=== PATIENT | male | born 1935 | race Caucasian/White ===

== ENCOUNTER 2017-10-16 14:13 | Emergency (ER) | payer MEDICARE ==
[2017-10-16 14:29] VITALS: RESP 18
[2017-10-16 14:30] VITALS: BMI 29.2
[2017-10-16] MEDS ORDERED: Dexamethasone 4 mg/1 ml IM STA (15:08)
[2017-10-16] MEDS ORDERED: Dexamethasone 4 mg/1 ml ONE (15:13)
--- NOTE | 2017-10-16 15:47 | C.PDOC ---
History Of Present Illness 82 y/o male presents to the ER complaining of left lower back pain radiating down the left leg since yesterday. No associated fall or trauma. Patient reports hx of herniated discs, but notes the pain worsened yesterday and now radiates all the way to his left heel. Pain worsens with movement, especially ambulation. Otherwise patient denies any dysuria, incontinence, fever, abdominal pain, extremity weakness, or changes in sensation. Denies taking any medication for pain prior to arrival. Requesting injection for pain in the ER. Time Seen by Provider: 10/16/17 14:41 Chief Complaint (Nursing): Lower Extremity Problem/Injury History Per: Patient History/Exam Limitations: no limitations Onset/Duration Of Symptoms: Days (x2) Current Symptoms Are (Timing): Still Present Past Medical History Reviewed: Historical Data, Nursing Documentation, Vital Signs Vital Signs: Last Vital Signs Temp 97.7 F 10/16/17 16:05 Pulse 60 10/16/17 16:05 Resp 18 10/16/17 16:05 BP 156/64 H 10/16/17 16:05 Pulse Ox 100 10/16/17 16:38 - Medical History PMH: HTN Denies: Chronic Kidney Disease Family History: States: Unknown Family Hx - Social History Hx Tobacco Use: No Hx Alcohol Use: Yes (Socially onec in 3 months) Hx Substance Use: No - Immunization History Hx Tetanus Toxoid Vaccination: No Hx Influenza Vaccination: Yes Hx Pneumococcal Vaccination: No Review Of Systems Except As Marked, All Systems Reviewed And Found Negative. Constitutional: Negative for: Fever, Chills Gastrointestinal: Negative for: Abdominal Pain Genitourinary: Positive for: Frequency. Negative for: Dysuria, Incontinence Musculoskeletal: Positive for: Back Pain Skin: Negative for: Rash Neurological: Negative for: Weakness, Numbness Physical Exam - Physical Exam Appears: Non-toxic, No Acute Distress Skin: Normal Color, Warm, Dry Head: Atraumatic, Normacephalic Eye(s): bilateral: Normal Inspection, PERRL, EOMI Nose: Normal Oral Mucosa: Moist Neck: Normal ROM, Supple Chest: Symmetrical Respiratory: No Accessory Muscle Use, Other (speaking in full sentences) Back: No Vertebral Tenderness, Paraspinal Tenderness (to left paralumbar region) , No Straight Leg Raising Extremity: Bilateral: Atraumatic, Normal Color And Temperature, Normal ROM Pulses: Left Dorsalis Pedis: Normal, Right Dorsalis Pedis: Normal Neurological/Psych: Oriented x3, Normal Speech, Normal Cranial Nerves, Normal Motor, Normal Sensation, Other (No focal deficits) Gait: Steady ED Course And Treatment O2 Sat by Pulse Oximetry: 100 (RA) Pulse Ox Interpretation: Normal Reevaluation Time: 16:22 Reassessment Condition: Improved Medical Decision Making Medical Decision Making: Initial Impression: Acute on chronic back pain Time: 15:08 Initial Plan: --Toradol 15 mg IM --Decadron 4 mg IM --Reevaluation after meds given Progress/Updates: 15:30 On further discussion, patient now reports he's having urinary frequency at night over the past several months. Denies dysuria. Added on UA and urine culture. 16:19 Labs reviewed, urine is negative. On reevaluation patient reports improvement in pain, and is ambulatory with steady gait. Patient informed of lab results, and counseled regarding diagnosis. Stable for d /c home. Advised patient to follow up with PMD in 1-2 days for further evaluation. Disposition Counseled Patient/Family Regarding: Studies Performed, Diagnosis, Need For Followup, Rx Given - Disposition Referrals: [facility] [Outside] Disposition: HOME/ ROUTINE Disposition Time: 16:22 Condition: STABLE Additional Instructions: Follow up with the medical doctor within 1-2 days. Return if worsened; Prescriptions: Acetaminophen [Tylenol] 325 mg PO Q6 PRN #30 tab PRN Reason: Pain, Mild (1-3) Cyclobenzaprine [Flexeril] 5 mg PO TID #21 tab predniSONE [Prednisone] 10 mg PO BID #10 tab Instructions: Low Back Pain (DC), Benign Prostatic Hyperplasia (Enlarged Prostate) (DC), Knee Pain Forms: [employer] (Cypriot) Print Language: LUXEMBOURGISH - POA Present On Arrival: None - Clinical Impression Clinical Impression: Back pain - PA / MANAGER COMPETITIVE INTELLIGENCE / Resident Statement MD/DO has reviewed & agrees with the documentation as recorded. - Scribe Statement The provider has reviewed the documentation as recorded by the Scribe (Caroline Valadez) All medical record entries made by the Scribe were at my direction and personally dictated by me. I have reviewed the chart and agree that the record accurately reflects my personal performance of the history, physical exam, medical decision making, and the department course for this patient. I have also personally directed, reviewed, and agree with the discharge instructions and disposition.
[2017-10-16 16:04] LABS: URINE BILIRUBIN NEGATIVE (NEGATIVE); URINE BLOOD NEGATIVE (NEGATIVE); URINE CLARITY Clear (Clear); URINE COLOR Yellow (YELLOW); URINE GLUCOSE (UA) NORMAL (Normal); URINE LEUKOCYTE ESTERASE NEG Leu/uL (Negative); URINE PROTEIN NEGATIVE (NEGATIVE); URINE UROBILINOGEN NORMAL mg/dL (0.2-1.0)
[2017-10-16 16:06] VITALS: BP 156/64; PULSE 60; TEMP 97.7
[2017-10-16 16:38] VITALS: O2SAT 100
== END 2017-10-16 16:35 | disposition home or self-care (01) ==
LOC: C.ER 14:13
DX: M54.9 Dorsalgia, unspecified (principal); I10 Essential (primary) hypertension
CPT/HCPCS: 81001; 87086; 96372; 99284; J1100; J1885

== ENCOUNTER 2018-04-10 17:47 | Emergency (ER) | payer MEDICARE ==
[2018-04-10 17:47] VITALS: BMI 29.2
--- NOTE | 2018-04-10 18:20 | C.PDOC ---
History Of Present Illness 82 year old male presents to the ED complaining of burning and pain on urination status post Quinn catheter removal. Reports he had prostate surgery two weeks ago and was sent home with Quinn catheter that was removed on 04/05 and since then he has been having the symptoms. Notes he is able to void and pass normal stream. States he is now having abdominal discomfort that radiates to his back and legs. Denies any fever or chills. Time Seen by Provider: 04/10/18 18:01 Chief Complaint (Nursing): Male Genitourinary History Per: Patient History/Exam Limitations: no limitations Onset/Duration Of Symptoms: Days Current Symptoms Are (Timing): Still Present Quality Of Discomfort: Other (discomfort) Associated Symptoms: Back Pain, Urinary Symptoms. denies: Fever, Chills, Nausea, Vomiting, Diarrhea, Chest Pain Past Medical History Reviewed: Historical Data, Nursing Documentation, Vital Signs Vital Signs: Last Vital Signs Temp 98 F 04/10/18 17:52 Pulse 116 H 04/10/18 17:52 Resp 22 04/10/18 17:52 BP 129/76 04/10/18 17:52 Pulse Ox 100 04/10/18 17:52 - Medical History PMH: HTN Denies: Chronic Kidney Disease Other Surgeries: Hx of surgeries - prostate, cataracts Family History: States: No Known Family Hx - Social History Hx Tobacco Use: No Hx Alcohol Use: Yes (Socially onec in 3 months) Hx Substance Use: No - Immunization History Hx Tetanus Toxoid Vaccination: No Hx Influenza Vaccination: Yes Hx Pneumococcal Vaccination: No Review Of Systems Constitutional: Negative for: Fever, Chills Cardiovascular: Negative for: Chest Pain Respiratory: Negative for: Shortness of Breath Gastrointestinal: Positive for: Abdominal Pain. Negative for: Nausea, Vomiting, Diarrhea, Constipation Genitourinary: Positive for: Dysuria. Negative for: Incontinence, Hematuria Musculoskeletal: Positive for: Back Pain, Leg Pain Neurological: Negative for: Weakness, Numbness Physical Exam - Physical Exam Appears: Non-toxic, No Acute Distress Skin: Warm, Dry, No Rash Head: Normacephalic Eye(s): bilateral: Normal Inspection Nose: Normal Oral Mucosa: Moist Neck: Supple Chest: Symmetrical Cardiovascular: Rhythm Regular Respiratory: Normal Breath Sounds, No Rales, No Rhonchi, No Wheezing Gastrointestinal/Abdominal: No Tenderness (no localized abdominal tenderness ), Distention (mild distention to lower abdomen ), No Guarding, No Rebound Male Genital: Normal Inspection Extremity: Bilateral: Atraumatic, Normal Color And Temperature, Normal ROM Neurological/Psych: Oriented x3, Normal Speech Gait: Steady ED Course And Treatment - Laboratory Results Result Diagrams: 18 18:27 1218 18:27 Lab Interpretation: Abnormal (WBC 12.8, urine WBC 78 wit h 2+ leukocyte esterase) O2 Sat by Pulse Oximetry: 100 (RA) Pulse Ox Interpretation: Normal Progress Note: Patient received IV Rocephin in ED. Reevaluation Time: 21:30 Reassessment Condition: Improved Medical Decision Making Medical Decision Making: Plan - Bloodwork - UA - Urine culture Disposition Counseled Patient/Family Regarding: Studies Performed, Diagnosis, Need For Followup, Rx Given - Disposition Disposition: HOME/ ROUTINE Disposition Time: 21:35 Condition: STABLE Prescriptions: Ciprofloxacin [Cipro] 1 tab PO BID #14 tab Instructions: Urinary Tract Infections in Adults Forms: [facility] (Pashto) Print Language: HUNGARIAN - Clinical Impression Clinical Impression: UTI (urinary tract infection) - Scribe Statement The provider has reviewed the documentation as recorded by the Scribe Alison Hernandez All medical record entries made by the Scribe were at my direction and personally dictated by me. I have reviewed the chart and agree that the record accurately reflects my personal performance of the history, physical exam, medical decision making, and the department course for this patient. I have also personally directed, reviewed, and agree with the discharge instructions and disposition.
[2018-04-10 18:33] LABS: BASO # 0.1 K/uL (0.0-0.2); BASO % 0.8 % (0.0-2.0); EOS # 0.1 K/uL (0.0-0.7); EOS % 0.9 % (0.0-4.0); HEMOGLOBIN 13.5 g/dL (12.0-18.0); LYMPH # 1.9 K/uL (1.0-4.3); LYMPH % 14.5 % (20.0-40.0); MEAN CELL VOLUME 90.7 fL (80.0-94.0); MEAN CORPUSCULAR HEMOGLOBIN 30.2 pg (27.0-31.0); MEAN CORPUSCULAR HGB CONC 33.3 g/dL (33.0-37.0); MEAN PLATELET VOLUME 7.3 fL (7.2-11.7); MONO # 1.2 K/uL (0.0-0.8); MONO % 9.1 % (0.0-10.0); NEUT # 9.5 K/uL (1.8-7.0); NEUT % 74.7 % (50.0-75.0); RBC 4.46 Mil/uL (4.40-5.90); RED CELL DISTRIBUTION WIDTH 13.5 % (11.5-14.5); WHITE BLOOD COUNT 12.8 K/uL (4.8-10.8)
[2018-04-10 18:48] LABS: ALB/GLOB RATIO 1.4 (1.0-2.1); ALBUMIN 4.2 g/dL (3.5-5.0); ALT/SGPT 32 U/L (21-72); AST/SGOT 25 U/L (17-59); BLOOD UREA NITROGEN 17 mg/dL (9-20); CALCIUM 8.5 mg/dl (8.6-10.4); GFR NON-AFRICAN AMERICAN > 60
[2018-04-10 18:50] LABS: URINE BILIRUBIN NEGATIVE (NEGATIVE); URINE BLOOD 3+ (NEGATIVE); URINE CLARITY Clear (Clear); URINE COLOR Yellow (YELLOW); URINE GLUCOSE (UA) NORMAL (Normal); URINE LEUKOCYTE ESTERASE 2+ Leu/uL (Negative); URINE PROTEIN 2+ mg/dL (NEGATIVE); URINE UROBILINOGEN NORMAL mg/dL (0.2-1.0)
[2018-04-10] MEDS ORDERED: cefTRIAXone IV 1 gm in Dextros 50 ML IVPB ONE (18:59)
[2018-04-10] MEDS ORDERED: cefTRIAXone 1 gm 1 GM/100 ML BAG IVPB ONE (19:20)
[2018-04-10 21:46] VITALS: BP 136/74; PULSE 68; RESP 18; TEMP 98.1; O2SAT 98
== END 2018-04-10 21:46 | disposition home or self-care (01) ==
LOC: C.ER 17:47
DX: N39.0 Urinary tract infection, site not specified (principal); I10 Essential (primary) hypertension
CPT/HCPCS: 80053; 81001; 85025; 87086; 96374; 99285; J0696

== ENCOUNTER 2018-04-28 08:05 | Emergency (ER) | payer MEDICARE ==
[2018-04-28 08:06] VITALS: BMI 29.2
--- NOTE | 2018-04-28 08:36 | C.PDOC ---
History Of Present Illness 82 y/o male with a PMHx of BPH presents to the ED for evaluation of dysuria and hematuria since 1 month ago. Patient reports having an ultrasound of his prostate 1 month ago, after which he had a catheter placed for 1 week and then r emoved. He states symptoms have now worsened including testicular pain and swelling. Patient notes he was seen by his doctor and prescribed courses of Levaquin and Bactrim for a UTI, which he started yesterday. He reports the medication made him feel anxious and "desperate", associated with difficulty sleeping last night. Otherwise he denies any dizziness, nausea, vomiting, diarrhea, fevers, chills, or night sweats. Patient also reports low back pain, denies history of chronic pain. Time Seen by Provider: 04/28/18 08:30 Chief Complaint (Nursing): Male Genitourinary History Per: Meat Grinder (site interpreter #[id number] Yasmine) History/Exam Limitations: no limitations Onset/Duration Of Symptoms: Days Current Symptoms Are (Timing): Still Present Associated Symptoms: Back Pain, Urinary Symptoms Past Medical History Reviewed: Historical Data, Nursing Documentation, Vital Signs Vital Signs: Last Vital Signs Temp Pulse 87 04/28/18 08:09 Resp 18 04/28/18 08:09 BP 104/60 04/28/18 08:09 Pulse Ox 96 04/28/18 08:09 - Medical History PMH: Benign Prostatic Hyperplasia, HTN Denies: Chronic Kidney Disease Family History: States: Unknown Family Hx - Social History Hx Tobacco Use: No Hx Alcohol Use: Yes (Socially onec in 3 months) Hx Substance Use: No - Immunization History Hx Tetanus Toxoid Vaccination: No Hx Influenza Vaccination: Yes Hx Pneumococcal Vaccination: No Review Of Systems Constitutional: Negative for: Fever, Chills, Sweats Eyes: Negative for: Vision Change Cardiovascular: Negative for: Chest Pain Respiratory: Negative for: Shortness of Breath Gastrointestinal: Negative for: Nausea, Vomiting, Diarrhea Genitourinary: Positive for: Dysuria, Hematuria, Other (Testicular pain and swelling). Negative for: Penile Discharge, Rash Musculoskeletal: Positive for: Back Pain Neurological: Negative for: Weakness, Numbness, Headache, Dizziness Psych: Positive for: Anxiety Physical Exam - Physical Exam Appears: Non-toxic, No Acute Distress Skin: Warm, Dry Head: Normacephalic Eye(s): bilateral: Normal Inspection, PERRL, EOMI Oral Mucosa: Moist Neck: Trachea Midline, Supple, Other (No meningeal signs- negative kernig's and brudzinskis) Chest: Symmetrical Cardiovascular: Rhythm Regular, No Friction Rub Respiratory: No Rales, No Rhonchi, No Wheezing Gastrointestinal/Abdominal: Soft, No Tenderness, No Distention Back: No CVA Tenderness, No Vertebral Tenderness, Paraspinal Tenderness (across lumbar region) Male Genital: Normal Inspection, No Testicular Tenderness, No Testicular Swelling Extremity: Bilateral: No Pedal Edema, Normal Color And Temperature Pulses: Left Dorsalis Pedis: Normal, Right Dorsalis Pedis: Normal Neurological/Psych: Oriented x3 ED Course And Treatment - Laboratory Results Result Diagrams: 04/28/18 09:24 04/28/18 09:24 O2 Sat by Pulse Oximetry: 96 (RA) Pulse Ox Interpretation: Normal Medical Decision Making Medical Decision Makin82 y/o male with a PMHx of prostate issues presents to the ED for evaluation of dysuria, testicular pain, and hematuria x 1 month. Urine on exam, magi without clots. Initial Plan: --Blood work --Urinalysis --Urine culture --Testicular US 1122 Testicular US resulted: L groin epidymitis urine magi- ct, ck ordered given blood Denies any sexual activity. No hx of STDS, was previously on levo for uti, started yesterday, Will likely change to cipro. [address] Ct unremarkable will d/c home w/ cipro for epididymitis prostate enlarged, ttp on rectal exam. no blood noted on exam. endorsed to pt to d/c levo and start cipro. he is agreeable Disposition - Disposition Referrals: Su Bowman MD [Staff Provider] - Disposition: HOME/ ROUTINE Disposition Time: 13:47 Condition: GOOD Additional Instructions: DENICE TONY, thank you for letting us take care of you today. Your provi francine was Mo Melgar and you were treated for BLOOD IN URINE. The emergency medical care you received today was directed at your acute symptoms. If you were prescribed any medication, please fill it and take as directed. It may take several days for your symptoms to resolve. Return to the Emergency Department if your symptoms worsen, do not improve, or if you have any other problems. Please contact your doctor or call one of the physicians/clinics you have been referred to that are listed on the Patient Visit Information form that is included in your discharge packet. Bring any paperwork you were given at discharge with you along with any medications you are taking to your follow up visit. Our treatment cannot replace ongoing medical care by a primary care provider outside of the emergency department. Thank you for allowing the [facility] team to be part of your care today. If you had an X-Ray or CT scan: A Radiologist will review the ED reading if any change in treatment is needed we will contact you. If you had a blood, urine, or wound culture: It will take several days for the results, if any change in treatment is needed we will contact you. If you had an STI test: It will take 48 hours for the results. Please call after 1 week if you have not heard back. Prescriptions: Ciprofloxacin [Cipro] 500 mg PO Q12H 28 Days #56 tab Instructions: Prostatitis, Epididymitis (DC) Forms: [employer] (Romanian) Print Language: UKRAINIAN - Clinical Impression Clinical Impression: Epididymitis, Prostatitis - Scribe Statement The provider has reviewed the documentation as recorded by the Taiwo Valadez Provider Attestation: All medical record entries made by the Taiwo were at my direction and personally dictated by me. I have reviewed the chart and agree that the record accurately reflects my personal performance of the history, physical exam, medical decision making, and the department course for this patient. I have also personally directed, reviewed, and agree with the discharge instructions and disposition.
[2018-04-28 09:41] LABS: BASO % 0.5 % (0.0-2.0); EOS # 0.2 K/uL (0.0-0.7); HEMOGLOBIN 13.2 g/dL (12.0-18.0); LYMPH # 1.3 K/uL (1.0-4.3); LYMPH % 16.1 % (20.0-40.0); MEAN CELL VOLUME 90.8 fL (80.0-94.0); MEAN CORPUSCULAR HEMOGLOBIN 30.3 pg (27.0-31.0); MEAN CORPUSCULAR HGB CONC 33.4 g/dL (33.0-37.0); MEAN PLATELET VOLUME 7.7 fL (7.2-11.7); MONO # 0.6 K/uL (0.0-0.8); MONO % 7.7 % (0.0-10.0); NEUT % 73.7 % (50.0-75.0); RBC 4.36 Mil/uL (4.40-5.90); RED CELL DISTRIBUTION WIDTH 13.6 % (11.5-14.5); WHITE BLOOD COUNT 8.2 K/uL (4.8-10.8)
[2018-04-28 09:46] LABS: URINE BACTERIA OCC (<OCC); URINE BILIRUBIN NEGATIVE (NEGATIVE); URINE BLOOD 3+ (NEGATIVE); URINE CLARITY Hazy (Clear); URINE COLOR Amber (YELLOW); URINE GLUCOSE (UA) NORMAL (Normal); URINE LEUKOCYTE ESTERASE 3+ Leu/uL (Negative); URINE PROTEIN 2+ mg/dL (NEGATIVE)
[2018-04-28 09:51] LABS: ALB/GLOB RATIO 1.3 (1.0-2.1); ALBUMIN 4.1 g/dL (3.5-5.0); ALT/SGPT 37 U/L (21-72); AST/SGOT 40 U/L (17-59); BLOOD UREA NITROGEN 16 mg/dL (9-20); CALCIUM 9.1 mg/dl (8.6-10.4); GFR NON-AFRICAN AMERICAN > 60
[2018-04-28] MEDS ORDERED: Iodixanol 320 MG/ML 100 ML BOTTLE IV ONE (10:25)
--- NOTE | 2018-04-28 11:09 | US ---
Date of service: 04/28/2018 HISTORY: blood in urine TECHNIQUE: Realtime sonography through the scrotum with color and doppler flow. COMPARISON: None Available. FINDINGS: RIGHT TESTICLE: Measures 4.1 x 2.3 x 3.1 cm. Homogeneous echotexture. Blood flow is demonstrated. RIGHT EPIDIDYMIS: 1.3 x 0.5 x 1.2 cm cyst. LEFT TESTICLE: Measures 4.2 x 3.0 x 2.3 cm. Homogeneous echotexture. Blood flow is demonstrated. LEFT EPIDIDYMIS: 2.1 x 1.7 x 2.3 cm cyst. The left epididymis appears enlarged as compared to the right with mildly increased vascularity. HYDROCELE: Small bilateral hydroceles appear mildly complex containing internal echoes. VARICOCELE: Left-sided varicocele. OTHER FINDINGS: None. IMPRESSION: Increased vascularity enlargement of the left epididymis appears consistent with acute epididymitis. Correlate clinically. Small bilateral hydroceles appear mildly complex. Bilateral epididymal cysts the largest of which are measured above. Left-sided varicocele.
[2018-04-28 12:39] VITALS: RESP 18
--- NOTE | 2018-04-28 13:33 | CT ---
Date of service: 04/28/2018 PROCEDURE: CT Abdomen and Pelvis with contrast HISTORY: hematuria COMPARISON: Abdomen pelvis CT with contrast 01/30/2015. TECHNIQUE: Following the intravenous administration of iodinated contrast material, a CT examination of the abdomen and pelvis performed from the domes of the diaphragms to the symphysis pubis with reformatted datasets provided in axial, sagittal and coronal planes. Oral contrast was not administered as per referring physician request. Coronal and sagittal reformats were generated. Contrast dose: Visipaque 320, 100 cc Radiation dose: Total exam DLP = 2879.68 mGy-cm. This CT exam was performed using one or more of the following dose reduction techniques: Automated exposure control, adjustment of the mA and/or kV according to patient size, and/or use of iterative reconstruction technique. 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 Small bulla seen at the medial right lower lobe once again. LIVER: Unremarkable. No gross lesion or ductal dilatation. GALLBLADDER AND BILE DUCTS: Unremarkable. PANCREAS: Unremarkable. No gross lesion or ductal dilatation. SPLEEN: Unremarkable. ADRENALS: Unremarkable. No mass. KIDNEYS AND URETERS: No radiodense urolithiasis, perinephric fluid collection or obstructive uropathy is appreciate bilaterally. The bilateral ureters appear normal caliber overall. VASCULATURE: Nonaneurysmal abdominal aortic calcific atherosclerotic changes are identified. BOWEL: Unremarkable. No bowel obstruction. Left colonic diverticular changes are mildly increased at the sigmoid segment remains the most affected in portion. No acute diverticulitis pattern appreciable. APPENDIX: Normal appendix. PERITONEUM: Unremarkable. No free fluid. No free air. LYMPH NODES: Unremarkable. No enlarged lymph nodes. BLADDER: The urinary bladder is not fully distended but no prominent mural thickening is seen or focal nodularity. No radiodense urolithiasis is seen in the preliminary CT through the urinary bladder. REPRODUCTIVE: Enlarged prostate gland is appreciated to 5.5 cm greatest transverse dimension with heterogeneous enhancement associated as well as occasional central calcifications. Seminal vesicles appear stable bilaterally. There is a small epididymal head cyst measuring 2.3 x 2.0 cm is loculated hydrocele. BONES: Stable limited grade 1 spondylolisthesis L5-S1 with bilateral L5 spondylolysis reiterated. OTHER FINDINGS: None. IMPRESSION: 1. No radiodense urolithiasis, obstructive uropathy or definitive renal mass bilaterally. Ureters and urinary bladder appear nonfocal. No perinephric reaction bilaterally. 2. Reiteration of enlarged prostate gland. 3. Mild increase in left colonic diverticulosis without acute changes. 4. Stable limited grade 1 spondylolisthesis L5-S1.
[2018-04-28 14:56] VITALS: BP 127/78; PULSE 65; TEMP 98.3; O2SAT 100
== END 2018-04-28 14:55 | disposition home or self-care (01) ==
LOC: C.ER 08:05
DX: N45.1 Epididymitis (principal); N41.9 Inflammatory disease of prostate, unspecified; I10 Essential (primary) hypertension
CPT/HCPCS: 74177; 76870; 80053; 81001; 82550; 85025; 87086; 99285; G0328; Q9967

== ENCOUNTER 2018-08-10 06:01 | Emergency (ER) | payer MEDICARE ==
[2018-08-10 06:02] VITALS: BMI 29.2
[2018-08-10 06:12] VITALS: RESP 18
[2018-08-10 06:48] LABS: BASO # 0.1 K/uL (0.0-0.2); EOS # 0.2 K/uL (0.0-0.7); HEMOGLOBIN 13.2 g/dL (12.0-18.0); LYMPH # 1.6 K/uL (1.0-4.3); LYMPH % 21.7 % (20.0-40.0); MEAN CELL VOLUME 90.4 fL (80.0-94.0); MEAN CORPUSCULAR HEMOGLOBIN 29.8 pg (27.0-31.0); MEAN CORPUSCULAR HGB CONC 32.9 g/dL (33.0-37.0); MEAN PLATELET VOLUME 7.6 fL (7.2-11.7); MONO # 0.5 K/uL (0.0-0.8); MONO % 6.7 % (0.0-10.0); NEUT % 67.6 % (50.0-75.0); RBC 4.42 Mil/uL (4.40-5.90); RED CELL DISTRIBUTION WIDTH 13.2 % (11.5-14.5); WHITE BLOOD COUNT 7.4 K/uL (4.8-10.8)
[2018-08-10 07:04] LABS: ALB/GLOB RATIO 1.4 (1.0-2.1); ALBUMIN 3.8 g/dL (3.5-5.0); ALT/SGPT 31 U/L (21-72); AST/SGOT 37 U/L (17-59); BLOOD UREA NITROGEN 16 mg/dL (9-20); CALCIUM 8.8 mg/dl (8.6-10.4); GFR NON-AFRICAN AMERICAN > 60; LIPASE 210 U/L (23-300)
--- NOTE | 2018-08-10 07:30 | C.PDOC ---
History Of Present Illness 82 y/o M p/w abdominal pain since last night. Pain is RUQ, nonradiating, associated with vomiting yesterday but no nausea now. Denies fever, chills, chest pain, dyspnea, dysuria, constipation. Time Seen by Provider: 08/10/18 07:08 Chief Complaint (Nursing): Abdominal Pain Past Medical History Vital Signs: Last Vital Signs Temp 97.7 F 08/10/18 06:10 Pulse 60 08/10/18 06:10 Resp 18 08/10/18 06:10 BP 158/83 H 08/10/18 06:10 Pulse Ox 98 08/10/18 06:10 - Medical History PMH: Benign Prostatic Hyperplasia, HTN Denies: Chronic Kidney Disease Family History: States: Unknown Family Hx - Social History Hx Tobacco Use: No Hx Alcohol Use: No (Socially onec in 3 months) Hx Substance Use: No - Immunization History Hx Tetanus Toxoid Vaccination: Yes Hx Influenza Vaccination: Yes Hx Pneumococcal Vaccination: Yes Review Of Systems Except As Marked, All Systems Reviewed And Found Negative. Constitutional: Negative for: Fever Respiratory: Negative for: Shortness of Breath Physical Exam - Physical Exam Additional Physical Exam Comments: gen nad head nc/at eyes perrl ent mmm neck supple chest not tender cv reg rate lungs cta b/l abd RUQ tenderness with guarding back no cva tenderness extremities no tenderness skin no rash neuro alert ED Course And Treatment - Laboratory Results Result Diagrams: 08/10/18 06:30 08/10/18 06:30 Lab Results: Total Bilirubin 0.9 mg/dL (0.2-1.3) 08/10/18 06:30 AST 37 U/L (17-59) 08/10/18 06:30 ALT 31 U/L (21-72) 08/10/18 06:30 Alkaline Phosphatase 98 U/L (38-126) 08/10/18 06:30 Total Protein 6.6 g/dL (6.3-8.3) 08/10/18 06:30 Albumin 3.8 g/dL (3.5-5.0) 08/10/18 06:30 Globulin 2.8 gm/dL (2.2-3.9) 08/10/18 06:30 Albumin/Globulin Ratio 1.4 (1.0-2.1) 08/10/18 06:30 Lipase 210 U/L (23-300) 08/10/18 06:30 O2 Sat by Pulse Oximetry: 98 - CT Scan/US Abdomen US Other Rad Studies (CT/US): Read By Radiologist, Radiology Report Reviewed CT/US Interpretation: FINDINGS: LIVER: Measures 13.2 cm. There is diffuse increased echogenicity of the liver parenchyma. No mass. No intrahepatic bile duct dilatation. GALLBLADDER: The gallbladder is well distended. There is mil d gallbladder wall thickening. There is layering sludge. No evidence for gallstones, pericholecystic fluid or positive sonographic Dukes's sign. COMMON BILE DUCT: Measures 3.3 mm. No stones. No dilatation. PANCREAS: Unremarkable as visualized. No mass. No ductal dilatation. RIGHT KIDNEY: Measures 10.5cm. Normal echogenicity. No calculus, mass, or hydronephrosis. LEFT KIDNEY: Measures 11.0cm. Normal echogenicity. No calculus, mass, or hydronephrosis. SPLEEN: Normal in size and contour. No mass. AORTA: No aneurysmal dilatation. IVC: Unremarkable. OTHER FINDINGS: None. IMPRESSION: Fatty liver. No cholelithiasis or biliary dilatation Medical Decision Making Medical Decision Making: IMPRESSION: No acute abdominal or pelvic abnormality. Extensive left colonic diverticulosis without CT evidence for acute diverticulitis. Moderate enlargement of the prostate gland. Please correlate with PSA levels. Patient in no distress. F/u PMD, return to ED for worsening pain, vomiting, fever, or any other problem. Disposition - Disposition Referrals: [facility] [Outside] Disposition: HOME/ ROUTINE Disposition Time: 11:02 Condition: STABLE Prescriptions: Famotidine/Ca Carb/Mag Hydrox [Pepcid Complete Tablet Chew] 1 each PO BID #28 tab.chew Ondansetron ODT [Zofran ODT] 4 mg PO Q8 #12 odt Instructions: Benign Prostatic Hyperplasia (Enlarged Prostate) (DC), Prostate Cancer (DC), Diverticulosis Forms: [employer] (Sami) - Clinical Impression Clinical Impression: Enlarged prostate, Diverticulosis
[2018-08-10] MEDS ORDERED: Sodium Chloride 0.9% 1,000 ML ONE (07:33)
[2018-08-10] MEDS: Sodium Chloride 0.9% 1,000 ML IV STA (07:36)
[2018-08-10 08:15] LABS: URINE BILIRUBIN NEGATIVE (NEGATIVE); URINE BLOOD 1+ (NEGATIVE); URINE CLARITY Clear (Clear); URINE COLOR YELLOW (YELLOW); URINE GLUCOSE (UA) NORMAL (Normal); URINE LEUKOCYTE ESTERASE TRACE Leu/uL (Negative); URINE PROTEIN NEGATIVE (NEGATIVE); URINE UROBILINOGEN NORMAL mg/dL (0.2-1.0)
--- NOTE | 2018-08-10 08:48 | US ---
Date of service: 08/10/2018 HISTORY: RUQ tenderness COMPARISON: CT abdomen and pelvis from 04/28/2018. TECHNIQUE: Grayscale imaging was performed. FINDINGS: LIVER: Measures 13.2 cm. There is diffuse increased echogenicity of the liver parenchyma. No mass. No intrahepatic bile duct dilatation. GALLBLADDER: The gallbladder is well distended. There is mild gallbladder wall thickening. There is layering sludge. No evidence for gallstones, pericholecystic fluid or positive sonographic Dukes's sign. COMMON BILE DUCT: Measures 3.3 mm. No stones. No dilatation. PANCREAS: Unremarkable as visualized. No mass. No ductal dilatation. RIGHT KIDNEY: Measures 10.5cm. Normal echogenicity. No calculus, mass, or hydronephrosis. LEFT KIDNEY: Measures 11.0cm. Normal echogenicity. No calculus, mass, or hydronephrosis. SPLEEN: Normal in size and contour. No mass. AORTA: No aneurysmal dilatation. IVC: Unremarkable. OTHER FINDINGS: None. IMPRESSION: Fatty liver. No cholelithiasis or biliary dilatation
[2018-08-10] MEDS ORDERED: Iodixanol 320 MG/ML 100 ML BOTTLE IV ONE (09:44)
--- NOTE | 2018-08-10 11:01 | CT ---
Date of service: 08/10/2018 PROCEDURE: CT Abdomen and Pelvis with contrast HISTORY: abd pain, vomiting COMPARISON: 04/28/2018. TECHNIQUE: CT scan of the abdomen and pelvis was performed after administration of intravenous contrast. Oral contrast was not administered. Coronal and sagittal reformatted images were obtained. Contrast dose: 100 mL Visipaque 320 Radiation dose: Total exam DLP = 744.22 mGy-cm. This CT exam was performed using one or more of the following dose reduction techniques: Automated exposure control, adjustment of the mA and/or kV according to patient size, and/or use of iterative reconstruction technique. FINDINGS: LOWER THORAX: Is linear atelectasis in the left lung base. There is redemonstration of a tiny calcified granuloma in the left lateral lung base. LIVER: Normal in size with homogeneous enhancement. No gross lesion or ductal dilatation. GALLBLADDER AND BILE DUCTS: Well distended. No calcified gallstones, wall thickening or pericholecystic fluid. PANCREAS: Normal in size with homogeneous enhancement. No gross lesion or ductal dilatation. SPLEEN: Normal in size and appearance. ADRENALS: No discrete nodule. KIDNEYS AND URETERS: Normal in size with homogeneous enhancement. No hydronephrosis. No solid mass. VASCULATURE: No aortic aneurysm. There are aortic atherosclerotic calcifications present. BOWEL: Evaluation of the bowel is limited in the absence of oral contrast. The small bowel loops are normal in caliber. There is extensive left colonic diverticulosis without CT evidence for acute diverticulitis. No bowel wall thickening or obstruction. APPENDIX: Normal appendix. PERITONEUM: No free fluid. No free air. LYMPH NODES: No enlarged lymph nodes. BLADDER: Partially decompressed. REPRODUCTIVE: There is mild enlargement of the prostate gland. BONES: No acute fracture. 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 There are multilevel degenerative changes. OTHER FINDINGS: There is a small sliding hiatal hernia.. IMPRESSION: No acute abdominal or pelvic abnormality. Extensive left colonic diverticulosis without CT evidence for acute diverticulitis. Moderate enlargement of the prostate gland. Please correlate with PSA levels.
[2018-08-10 11:18] VITALS: BP 140/64; PULSE 55; TEMP 97.4; O2SAT 99
--- NOTE | 2018-08-12 00:06 | CARD ---
APPROVED REPORT Date of service: 08/10/2018 EKG Measurement Heart [id number] <Conclusion> Sinus bradycardia Left axis deviation Right bundle branch block Abnormal ECG
== END 2018-08-10 11:17 | disposition home or self-care (01) ==
LOC: C.ER 06:01
DX: N40.0 Benign prostatic hyperplasia without lower urinary tract symptoms (principal); K57.30 Diverticulosis of large intestine without perforation or abscess without bleeding; I10 Essential (primary) hypertension
CPT/HCPCS: 74177; 76700; 80053; 81001; 83690; 85025; 93005; 96361; 96374; 96375; 99285; J1885; J2405; J7030; Q9967